=== PATIENT | female | born 1985 | race Caucasian/White ===

== ENCOUNTER 2022-07-31 15:09 | Day surgery (SDC) | payer MEDICAID, SELFPAY ==
[2022-07-31] VITALS (8 sets, daily range): BP systolic 104–116; BP diastolic 69–83; PULSE 16–90; RESP 16–18; TEMP 36.5–37.3; O2SAT 96–100; BMI 18.5; BMI 18.8
--- NOTE | 2022-07-31 15:09 | ED.VIS.FEGU ---
HPI HPI - Female History of Present Illness Chief Complaint: Informant: patient and other Narrative Narrative: 36-year-old female G2, P1 presenting to the emergency room following an ultrasound which revealed an ectopic . Her urgent care technician is Dr. Mckeon. Patient was sent to the emergency room to prepare for surgery. PFSH PFSH Home Medications docosahexaenoic acid 200 mg capsule ( DHA) mg PO 07/31/22 [History Last Taken Unknown] Allergy/AdvReac Type Severity Reaction Status Date / Time No Known Allergies Allergy Verified 07/31/22 15:08 Family History (Updated 07/31/22 @ 14:34 by Mary Kay Honeycutt) Grandfather Lung cancer Grandmother Cancer Social History (Updated 07/31/22 @ 14:35 by Mary Kay Honeycutt) Smoking Status: Never smoker alcohol intake: never substance use type: does not use caffeine: Yes what type of physical activity do you participate in: aerobics frequency: 1-2 times per week seatbelt use: always do you feel safe at home: Yes additional social history: - Serge EXAM Physical Exam Const Vital Signs: 07/31/22 15:07 Pulse Rate 90 Respiratory Rate 16 Blood Pressure 104/75 Blood Pressure Mean 84 Pulse Ox 100 Oxygen Delivery Method Room Air Discharge Plan Admission Attending Provider: Issa Posey Primary Care Provider: Erkia Mckeon Discharge Orders/Prescriptions Prescriptions: No Action DHA 200 mg capsule PO Referrals / Follow Up: Erika Mckeon MD [Primary Care Provider] - Disposition Disposition (needs filled in before D/C Order can be placed): Home, Self Care
[2022-07-31] MEDS: Lactated Ringers 1,000 ML 15 ML IV ×2 (15:45→17:00)
[2022-07-31 16:09] LABS: Absolute Lymphocyte Count 2.44 X10^3/uL (0.83-4.51); Absolute Neutrophil Count 5.5 X10^3/uL (2.0-7.7); Basophil# 0.04 X10^3/uL; Basophil% 0.4 % (0-1); Eosinophil# 0.19 X10^3/uL; Eosinophils% 2.1 % (0-5); Hematocrit 45.1 % (37-47); Hemoglobin 15.2 g/dL (12.0-15.0); Lymphocyte # 2.44 X10^3/ul (0.83-4.51); Lymphocyte % 27.3 % (19-41); Mean Corp Hgb Conc 33.7 g/dL (32-36); Mean Corpuscular Hgb 28.9 pg (27.0-32.0); Mean Corpuscular Volume 85.7 fL (81-99); Mean Platelet Vol. 10.1 fl (6.2-12.0); Monocyte# 0.76 X10^3/uL; Monocyte% 8.5 % (0-10); NRBC Flagged by Analyzer 0 % (0-5); Neutrophil # 5.47 X10^3/uL (2.7-7.7); Neutrophil % 61.1 % (47-70); Platelet Count 255 K/mm3 (150-450); RBC Distribution Width CV 12.1 % (11.6-14.6); RBC Distribution Width SD 37.7 fl (35.1-43.9); Red Blood Count 5.26 M/mm3 (4.2-5.4)
[2022-07-31 16:13] LABS: Prothrombin Time (Protime)PT. 12.7 SECONDS (11.7-14.9)
[2022-07-31 16:14] LABS: Partial Thromboplast Time 28.4 Seconds (24.1-36.2)
--- NOTE | 2022-07-31 16:17 | OP.PCM_ITS ---
Problems Associated Problem List Diagnoses (1) Ectopic : Report of Operation Date of Procedure: 07/31/22 Pre-Operative Diagnosis: see problem list Post-Operative Diagnosis: same Surgery/Procedure Performed:: laparoscopic right salpingectomy Description of Surgical Findings:: ruptured ectopic search coordinator: None (ragini parra) Type of Anesthesia: General and Local Specimen's removed: tube and ectopic Drains: none Estimated Blood Loss (mL): 50 Fluids Replaced: crystalloid Description of Procedure: Patient was taken in the operating room and was placed under general anesthesia was prepped and draped in normal sterile fashion in the dorsal lithotomy position. Bladder was drained of clear urine and SCDs were on preoperatively. Uterus was sounded and a uterine manipulator was placed after dilating. Attention was then paid to the abdominal portion of the procedure and the umbilicus was elevated with towel clamps and injected with Marcaine and after a 12 mm incision was made and the Veress needle was entered into the abdomen confirmed to be intra-abdominal with a low opening pressure of less than 5 mmHg. Abdomen was insufflated with CO2 gas and a 12 mm optical trocar was placed under direct visualization. A 5 mm port was placed in the right and left lower quadrant ports under direct visualization. Uterus was well visualized and there is noted to be a right ruptured ectopic coming from the right fallopian tube. Blood and clot were seen in the cul-de-sac. Fallopian tube was elevated and mesosalpinx transected and abnormal portion of the fallopian tube and were removed without complication and then placed in a bag and removed through the 12 mm port site. Liver and upper abdomen were visualized notably within normal limits and no other gross abnormalities were seen in the abdomen. All instruments removed from the abdomen after gas was desufflated. Antwan Vaughn was used to place a suture of 0 Vicryl through the 12 mm port site fascial incis ion. All port sites were closed with 3-0 Monocryl Steri's and op sites were applied. All instruments removed from the vagina and patient was awoken and taken recovery in stable condition. Grafts/Implants Used: none Complications none Admit VTE Documentation VTE Present on Admission: No VTE Mechan Device Prophylaxis: SCD's Procedures Urinary/Genital [id number]: [id number] Treat ectopic lapro w/ salpingectomy
--- NOTE | 2022-07-31 16:17 | HP.PCM_ITS ---
History and Physical Intake Vital Signs ? 07/31/2214:38 Height? 5 ft 4 in Weight:? 110 lb 8 oz BMI? 18.9 BP? 114/82 H Intake Visit Reasons:?PELVIC PAIN EARLY OB PER TK Allergies No Known Allergies Allergy (Verified 07/31/22 15:08) Medications docosahexaenoic acid 200 mg capsule ( DHA) mg PO 07/31/22 [History Confirmed 07/31/22] PFSH Family History?(Updated 07/31/22 @ 14:34 by Mary Kay Honeycutt) GrandfatherLung cancerGrandmother Cancer Social History?(Updated 07/31/22 @ 14:35 by Mary Kay Honeycutt) Smoking Status:? Never smoker alcohol intake:? never substance use type:? does not use caffeine:? Yes what type of physical activity do you participate in:? aerobics frequency:? 1-2 times per week seatbelt use:? always do you feel safe at home:? Yes additional social history:? - Serge HPI PELVIC PAIN EARLY OB PER TK Details: JONO CAMEJO is a 36 year old who presents for new onset pelvic pain and ectopic .? she has had pain increasing over the last day and denies any bleeding.? she was seen by a chiropractor yesterday and referred here. ultrasound shows AUA 6w0d CRL .3cm tube 1.8 x 1.7 x 1.8cm tube FHT seen 116 ys seen, all in the adnexa. History ? ? ? 2A ? Elective abortions ? Hx Para ? ? ? 1 ? Spontaneous abortions ? Hx # Term Pregnancies ? ? ?A ? Ectopic pregnancies ? Hx # Pregnancies ? Multiple births ? # of living children ? Past Pregnancies Del. Date? Name? GA/Weeks? Outcome? Route? Bth Weight? Infant Gen? Labor Lgth? Anesthesia? Del Locatn? Provider? FOB? 10/09/11 Max 41 live - full term 3kg 400g Male ? epidural ? [place] Serge Delivery Date: 10/09/11? Last Updated by: Mary Kay Honeycutt ? ? ? Patient states she was given Progesterone because baby was too low when she was 3 months . ROS Const Constitutional:?Denies fatigue, fever(s), headache(s), increased appetite, poor appetite, weight gain or weight loss Cardio Card:?Denies chest pain Resp Resp:?Denies cough or dyspnea GI GI:?Reports as per HPI; Denies constipation, nausea or vomiting :?Reports as per HPI; Denies difficulty voiding, dysuria, nipple discharge, urinary frequency, urinary incontinence, urinary hesitancy, urinary urgency, vaginal discharge, vaginal dryness, vaginal odor or vaginal pruritus Skin Skin/Breast:?Denies change in hair, breast mass, breast pain, breast skin changes or nipple discharge Exam Const General:?cooperative, healthy appearing, comfortable, no acute distress and well developed Nutritional Appearance:?average body habitus Orientation:?alert HENMT Head:?normal to inspection and normocephalic Neck Neck:?normal visual inspection and trachea midline Thyroid:?thyroid normal Resp Effort & Inspection:?normal respiratory effort GI Inspection:?normal to inspection and non-distended Palpation:?soft and no hepatosplenomegaly Skin General:?no rashes or lesions noted Coding Level of Care Code Off vis,new,level 4 Diagnoses Ectopic ? O00.90 Assessment and Plan Assessment and Plan (1) Ectopic : ?Status:?Acute ?Comment: plan emergent laparoscopic removal possible salpingostomy vs salpingectomy Plan After discussing the patient's diagnosis and treatment plan options, patient wishes to proceed with surgical management.? I have discussed with the patient the risks, benefits, and alternatives of the procedure which include but are not limited to risks of anesthesia, bleeding, infection, possible damage to bowel, bladder, or surrounding vasculature which could lead to additional surgery to evaluate any complications.? Patient agrees to procedure and wishes to proceed.? ACOG/uptodate references given for additional information regarding procedure.? Output By User Office Procedures Add?Procedure ? Departure Packet: Portal Print Orders Generate Education/Forms/Letters Visit Summary Decline ? Education ? Forms ? Letters Generated for this Document ? Prescriptions Prescriptions No prescriptions data is available. Incomplete Orders Incomplete Orders No Incomplete Orders Follow Up Scheduling?Grid Follow Up Patient Status Patient Status Departed Patient Status Comment Room 6 UPDATE- I have seen the patient and performed any clinically relevant updates to the history and physical exam. Erika Mckeon MD
--- NOTE | 2022-07-31 16:17 | DCINST_ITS ---
Discharge Instructions Diet Discharge Diet: No restrictions Activity Discharge Activity: Return to Normal Activity, May Drive (when pain free) and May Shower May resume sexual activity in: 1 week Weight Bearing Status: Full weight bearing Lifting Restrictions: 30 lbs for 2 weeks Dressing / Incision Call your doctor if your incision/area has: Continuous Slow Oozing, Sudden Increased Bleeding, Increased Pain/ Swelling, Increased Redness and Foul Smelling Discharge Call your doctor if you observe: Fever of 101 or Higher, Using more than 1 pad per hour, Shortness of breath, Chest pain and Uncontrolled pain Suture Line Care: Avoid Pulling/Pushing and Avoid Pinching/Bending Remove Dressing in: 1 week (if present) Cleanse incision/area with: Soap & Water and Keep Dressing Clean & Dry Follow Up Care Please Follow Up With: Erika Mckeon MD When: Call to make an appointment with your doctor for a postop visit in 2 weeks Test Results: Test results from this visit will be discussed in further detail at your follow- up appointment, if applicable. Discharge Plan Admission Attending Provider: Erika Mckeon Primary Care Provider: Erika Mckeon Discharge Orders/Prescriptions Prescriptions: New oxycodone-acetaminophen [Percocet] 5-325 mg tablet 1 tab PO Q6H PRN (Reason: pain) 7 Days Qty: 20 0RF naproxen [naproxen] 500 mg tablet 500 mg PO BID PRN PRN (Reason: Pain) Qty: 30 1RF Referrals / Follow Up: Erika Mckeon MD [Primary Care Provider] - Disposition Disposition (needs filled in before D/C Order can be placed): Home, Self Care
[2022-07-31 16:21] LABS: AST(SGOT) 11 U/L (15-37); Alanine Aminotransfer ALT/SGPT 18 U/L (13-56); Albumin, Serum 3.8 g/dL (3.2-5.0); Alkaline Phosphatase 84 U/L (45-117); Anion Gap 5 (5-15); BUN 16 mg/dL (7-18); BUN/Creat Ratio 23.1 RATIO (10-20); Calcium,Total 9.3 mg/dL (8.5-10.1); Chloride 103 mmol/L (98-107); Creatinine, Serum 0.69 mg/dL (0.55-1.02); EST Glomerular Filtration Rate 103 mL/min (>60); Est Glom Filt Rate - Afr Amer 124 mL/min (>60); Estimated Creatinine Clearance 90.49 ml/min; Glucose 96 mg/dL (74-106); Potassium 3.7 mmol/L (3.5-5.1); Protein, Total 7.8 g/dL (6.4-8.2); Sodium Level 137 mmol/L (136-145)
--- NOTE | 2022-07-31 17:00 | FAL_PTH ---
PATIENT: WINSTON CAMEJO LOC: ED U#:[id number] AGE/SX: 36/F ROOM: RE07/31/[address]: Dr. Erika Mckeon MD : 1985 BED: DIS: 07/31/2022 SPEC #: [id number] RECD: 08/03/22 11:10 STATUS: LARA BON #: [id number] FREDO: 07/31/22 17:[address]: Erika Mckeon DEPT: SURGICAL PATHOLOGY RECD BY: Catina Jackson Tissues: ECTOPIC PREG Procedures: Surgery Specimen Level IV HEADER OPERATION: Laparoscopic right salpingectomy, removal ectopic PRE-OP DIAGNOSIS: Ectopic TISSUE SUBMITTED: Right fallopian tube with ectopic MICROSCOPIC DIAGNOSIS Right fallopian tube with ectopic , salpingectomy: Fallopian tube and blood clots with immature chorionic villi and decidua (ectopic ). ELIZABETH:jay jay 08/04/2022 MICROSCOPIC DESCRIPTION Slides are reviewed. GROSS DESCRIPTION Received in fixative is one container labeled with the patient's name and designated right fallopian tube with ectopic . The specimen consists of a fallopian tube measuring 5.5 cm in length and 0.5 to 1.5 cm in diameter. The fimbrial end is identified. The proximal portion of the fallopian tube is distended. Sections reveal the distended portion is filled with blood clot. No obvious tissue is noted. Also present adherent to the fallopian tube are multiple blood clots measuring in aggregate 2 x 2.5 x 0.3 cm. The entire specimen is submitted in four cassettes. Cassette 4 contains the blood clots. / SJ:jay jay 08/03/2022 TC:5 CPT: 15681
== END 2022-07-31 18:51 | disposition home or self-care (01) ==
LOC: ED 15:11 → ACINP 15:11 → AC 15:23
PROVIDERS: Emergency Provider Emergency Medicine; PCP Obstetrics & Gynecology; Visit Provider Obstetrics & Gynecology
PROC: 10T24ZZ Resection of Products of Conception, Ectopic, Percutaneous Endoscopic Approach (ICD-10-PCS; CPT 59150; principal; 2022-07-31 16:45)
DX: O00.101 Right tubal pregnancy without intrauterine pregnancy (principal)
CPT/HCPCS: 59151; 00840; 76817; 80053; 85025; 85610; 85730; 88305; J7120; J2405

== ENCOUNTER → 2022-07-31 | Outpatient (CLI) | payer MEDICAID, SELFPAY ==
--- NOTE | 2022-07-31 13:48 | US_ITS ---
STUDY: FIRST TRIMESTER OBSTETRICAL ULTRASOUND REASON FOR EXAM: Female, 36 years old . Right lower quadrant pain. Viability. LMP: 06/12/2022. TECHNIQUE: Transvaginal TECHNICAL QUALITY: Adequate. PRIOR ULTRASOUND: None. FINDINGS: There is an extrauterine (ectopic) gestational sac. The mean sac diameter (MSD) measures 9.1 mm, indicating an estimated gestational age (EGA) of 5 weeks, 5 days. The gestational sac shape is within normal limits. There is a visualized yolk sac. The yolk sac measures 3 mm. The placenta is non-visualized. There is visualization of a live embryo. The crown-rump length (CRL) measures 3 mm, indicating an estimated gestational age (EGA) of 6 weeks, 1 days. There is demonstrated cardiac activity with a heart rate of 116 bpm. The estimated gestation age (EGA) by LMP is 7 weeks, 0 days. The estimated date of delivery (KELLE) by LMP is 03/19/2023. The estimated gestation age (EGA) by US is 6 weeks, 0 days. The estimated date of delivery (KELLE) by US is 03/26/2023. The uterus measures 7.6 cm x 6 x 4.5 cm. There is no demonstrated uterine fibroid. The cervix is closed. The right ovary measures 3.5 cm x 2.1 cm x 1.9 cm. There is evidence of a live ectopic in the right adnexa. There is no visualized right adnexal mass or complex lesion. The left ovary measures 2.3 cm x 1.7 cm x 1.9 cm. There is no left ovarian cyst. There is no visualized left adnexal mass or complex lesion. There is no fluid in the cul de sac. US/Transvaginal w/Preg US IMPRESSION: Findings indicative of a live ectopic corresponding to a gestational age of 6 weeks in the right adnexa. Electronically Signed: Jus Arriola MD at 14:56 EDT ,
== END | disposition home or self-care (01) ==
PROVIDERS: Referring Provider Registered Nurse; Visit Provider Registered Nurse
DX: O26.891 Other specified pregnancy related conditions, first trimester (principal); R10.2 Pelvic and perineal pain; Z3A.01 Less than 8 weeks gestation of pregnancy
CPT/HCPCS: 76817

== ENCOUNTER → 2022-10-16 | Outpatient (CLI) | payer MEDICAID, SELFPAY ==
--- NOTE | 2022-10-16 16:22 | US_ITS ---
INDICATION: Pelvic Pain EXAMINATION: Ultrasound US Pelvis Non OB Complete With Transvaginal Imaging TECHNIQUE: Transabdominal and transvaginal pelvic ultrasound was performed. Grayscale, spectral waveform, and color flow Doppler evaluation of the adnexa. COMPARISON: None. FINDINGS: UTERUS: Anteverted. The uterus measures 7.8 x 4.9 x 3.5 cm. There is no uterine mass. The endometrial stripe measures 8 mm in AP diameter which is within normal limits. RIGHT OVARY: 3.6 x 2.6 x 1.8 cm. Non-enlarged, normal echogenicity. There is normal arterial inflow and venous outflow present in the right ovary. LEFT OVARY: 2.6 x 2.5 x 1.7 cm. Non-enlarged, normal echogenicity. There is normal arterial inflow and venous outflow present in the left ovary. FREE FLUID: Trace US/Pelvic (Non ) IMPRESSION: No acute findings in the pelvis. Electronically Signed: Chris Blanco MD at 21:19 EST ,
== END | disposition home or self-care (01) ==
LOC: US 16:21
PROVIDERS: Referring Provider Obstetrics & Gynecology; Visit Provider Obstetrics & Gynecology
DX: R10.2 Pelvic and perineal pain (principal)
CPT/HCPCS: 76830; 76856; 93976

== ENCOUNTER → 2022-11-18 | Outpatient (CLI) | payer MEDICAID, SELFPAY ==
[2022-11-20 03:07] LABS: Chlamydia By Nucleic Acid AMP Negative (Negative)
[2022-11-20 13:05] LABS: Gonococcus By Nucleic Acid AMP Negative (Negative)
[2022-11-21 12:29] LABS: HPV APTIMA, High Risk Negative (Negative)
== END | disposition home or self-care (01) ==
LOC: LABSPEC 10:11
PROVIDERS: Referring Provider Nurse Practitioner Women's Health; Visit Provider Nurse Practitioner Women's Health
DX: Z12.4 Encounter for screening for malignant neoplasm of cervix (principal); Z11.3 Encounter for screening for infections with a predominantly sexual mode of transmission; N89.8 Other specified noninflammatory disorders of vagina
CPT/HCPCS: 87070; 87205; 87491; 87591; 87624; 88175; G0145

== ENCOUNTER → 2023-02-06 | Outpatient (CLI) | payer MEDICAID, SELFPAY ==
[2023-02-06 11:33] LABS: hCG Titer Quant., Serum 6082 mIU/mL (1-3)
== END | disposition home or self-care (01) ==
LOC: LAB 10:31
PROVIDERS: PCP Orthopaedic Surgery; Referring Provider Obstetrics & Gynecology; Visit Provider Obstetrics & Gynecology
DX: N91.2 Amenorrhea, unspecified (principal)
CPT/HCPCS: 36415; 84702

== ENCOUNTER → 2023-02-08 | Outpatient (CLI) | payer MEDICAID, SELFPAY ==
[2023-02-08 12:13] LABS: hCG Titer Quant., Serum 12182 mIU/mL (1-3)
== END | disposition home or self-care (01) ==
PROVIDERS: PCP Orthopaedic Surgery; Referring Provider Obstetrics & Gynecology; Visit Provider Obstetrics & Gynecology
DX: N91.2 Amenorrhea, unspecified (principal)
CPT/HCPCS: 36415; 84702

== ENCOUNTER → 2023-03-01 | Outpatient (CLI) | payer MEDICAID, SELFPAY ==
[2023-03-02 22:06] LABS: Chlamydia By Nucleic Acid AMP Negative (Negative); Gonococcus By Nucleic Acid AMP Negative (Negative)
== END | disposition home or self-care (01) ==
LOC: LABSPEC 11:11
PROVIDERS: PCP Orthopaedic Surgery; Referring Provider Obstetrics & Gynecology; Visit Provider Obstetrics & Gynecology
DX: O09.90 Supervision of high risk pregnancy, unspecified, unspecified trimester (principal)
CPT/HCPCS: 87086; 87491; 87591

== ENCOUNTER → 2023-03-15 | Outpatient (CLI) | payer MEDICAID, SELFPAY ==
[2023-03-15 16:11] LABS: Absolute Lymphocyte Count 2.41 X10^3/uL (0.83-4.51); Absolute Neutrophil Count 8.3 X10^3/uL (2.0-7.7); Basophil# 0.03 X10^3/uL; Basophil% 0.3 % (0-1); Eosinophil# 0.16 X10^3/uL; Eosinophils% 1.4 % (0-5); Hematocrit 38.1 % (37-47); Hemoglobin 12.9 g/dL (12.0-15.0); Lymphocyte # 2.41 X10^3/ul (0.83-4.51); Lymphocyte % 20.8 % (19-41); Mean Corp Hgb Conc 33.9 g/dL (32-36); Mean Corpuscular Hgb 28.6 pg (27.0-32.0); Mean Corpuscular Volume 84.5 fL (81-99); Mean Platelet Vol. 9.9 fl (6.2-12.0); Monocyte# 0.66 X10^3/uL; Monocyte% 5.7 % (0-10); NRBC Flagged by Analyzer 0 % (0-5); Neutrophil # 8.27 X10^3/uL (2.7-7.7); Neutrophil % 71.5 % (47-70); Platelet Count 276 K/mm3 (150-450); RBC Distribution Width SD 36.4 fl (35.1-43.9); Red Blood Count 4.51 M/mm3 (4.2-5.4); White Blood Count 11.6 K/mm3 (4.4-11.0)
[2023-03-15 16:55] LABS: NATERA MAILED SPECIMEN
[2023-03-15 17:09] LABS: HIV - WCH Non-Reactive (Nonreactive); Hepatitis B Surface Antigen Non-Reactive (Nonreactive); Hepatitis C Antibody Non-Reactive (Nonreactive); Rubella IgG Reactive (Nonreactive); Syphilis Antibodies Non-reactive
== END | disposition home or self-care (01) ==
LOC: PAVLAB 15:46
PROVIDERS: PCP Orthopaedic Surgery; Referring Provider Obstetrics & Gynecology; Visit Provider Obstetrics & Gynecology
DX: O09.511 Supervision of elderly primigravida, first trimester (principal); Z31.430 Encounter of female for testing for genetic disease carrier status for procreative management; Z3A.00 Weeks of gestation of pregnancy not specified
CPT/HCPCS: 36415; 85025; 86703; 86762; 86780; 86803; 86850; 86900; 86901; 87340

== ENCOUNTER → 2023-04-28 | Outpatient (CLI) | payer MEDICAID, SELFPAY | END | disposition home or self-care (01) | LOC: LABSPEC 12:06 | PROVIDERS: PCP Orthopaedic Surgery; Referring Provider Advanced Practice Midwife; Visit Provider Advanced Practice Midwife | DX: O09.90 Supervision of high risk pregnancy, unspecified, unspecified trimester (principal); Z3A.00 Weeks of gestation of pregnancy not specified | CPT/HCPCS: 87086 ==

== ENCOUNTER → 2023-07-16 | Outpatient (CLI) | payer MEDICAID, SELFPAY ==
[2023-07-16 09:49] LABS: Absolute Lymphocyte Count 1.19 X10^3/uL (0.83-4.51); Absolute Neutrophil Count 8.3 X10^3/uL (2.0-7.7); Basophil# 0.02 X10^3/uL; Basophil% 0.2 % (0-1); Hematocrit 35.2 % (37-47); Hemoglobin 11.8 g/dL (12.0-15.0); Lymphocyte # 1.19 X10^3/ul (0.83-4.51); Lymphocyte % 11.5 % (19-41); Mean Corp Hgb Conc 33.5 g/dL (32-36); Mean Corpuscular Hgb 29.4 pg (27.0-32.0); Mean Corpuscular Volume 87.8 fL (81-99); Mean Platelet Vol. 10.1 fl (6.2-12.0); Monocyte# 0.66 X10^3/uL; Monocyte% 6.4 % (0-10); NRBC Flagged by Analyzer 0 % (0-5); Neutrophil # 8.32 X10^3/uL (2.7-7.7); Platelet Count 190 K/mm3 (150-450); RBC Distribution Width SD 41.6 fl (35.1-43.9); Red Blood Count 4.01 M/mm3 (4.2-5.4); White Blood Count 10.4 K/mm3 (4.4-11.0)
[2023-07-16 10:00] LABS: Glucose Challenge Gest 1H 50g 137 mg/dL (70-140)
[2023-07-16 10:37] LABS: HIV - WCH Non-Reactive (Nonreactive); Syphilis Antibodies Non-reactive
== END | disposition home or self-care (01) ==
PROVIDERS: PCP Orthopaedic Surgery; Referring Provider Obstetrics & Gynecology; Visit Provider Obstetrics & Gynecology
DX: O09.90 Supervision of high risk pregnancy, unspecified, unspecified trimester (principal); Z3A.00 Weeks of gestation of pregnancy not specified
CPT/HCPCS: 36415; 82950; 85025; 86703; 86780

== ENCOUNTER → 2023-07-17 | Outpatient (CLI) | payer MEDICAID, SELFPAY | END | disposition home or self-care (01) | LOC: LAB 08:54 | PROVIDERS: PCP Orthopaedic Surgery; Referring Provider Registered Nurse; Visit Provider Registered Nurse | DX: Z00.00 Encounter for general adult medical examination without abnormal findings (principal) ==

== ENCOUNTER 2023-07-21 07:21 | Outpatient (CLI) | payer MEDICAID, SELFPAY ==
[2023-07-21 08:09] LABS: Glucose GTT-Gestation. Fasting 103 mg/dL (<105)
[2023-07-21 09:04] LABS: Glucose GTT-Gestational 1 Hr 248 mg/dL (<190)
[2023-07-21 09:58] LABS: Glucose GTT-Gestational 2 Hr 188 mg/dL (<165)
[2023-07-21 11:28] LABS: Glucose GTT-Gestational 3 Hr 134 L (<145)
== END 2023-07-21 23:59 | disposition home or self-care (01) ==
LOC: LAB 07:23
PROVIDERS: PCP Orthopaedic Surgery; Visit Provider Registered Nurse
DX: Z13.1 Encounter for screening for diabetes mellitus (principal)
CPT/HCPCS: 36415; 82951; 82952

== ENCOUNTER 2023-07-28 07:59 | Outpatient (RCR) | payer MEDICAID, SELFPAY | END 2023-07-31 23:59 | LOC: DC 07:59 | PROVIDERS: PCP Orthopaedic Surgery; Referring Provider Registered Nurse; Visit Provider Registered Nurse | DX: O24.419 Gestational diabetes mellitus in pregnancy, unspecified control (principal) | CPT/HCPCS: 97802 ==

== ENCOUNTER 2023-08-03 09:43 | Outpatient (RCR) | payer MEDICAID, SELFPAY | END 2023-08-31 23:59 | LOC: DC 09:43 | PROVIDERS: PCP Orthopaedic Surgery; Referring Provider Registered Nurse; Visit Provider Registered Nurse | DX: O24.419 Gestational diabetes mellitus in pregnancy, unspecified control (principal); Z3A.00 Weeks of gestation of pregnancy not specified | CPT/HCPCS: 97803 ==

== ENCOUNTER → 2023-09-06 | Outpatient (CLI) | payer MEDICAID, SELFPAY ==
--- NOTE | 2023-09-06 16:18 | US_ITS ---
EXAM: US SECOND OR THIRD TRIMESTER , TRANSABDOMINAL CLINICAL INDICATION: - low lying placenta TECHNIQUE: Transabdominal obstetrical ultrasound of the maternal pelvis and a second or third trimester with image documentation. COMPARISON: None this . FINDINGS: FETUS: Breech presentation. HEART RATE: 140 bpm. PRESENTATION: PLACENTA: Grade 1-2 anterior placenta. Not particularly low-lying. No placenta previa. No abruption. AMNIOTIC FLUID: Unremarkable. Largest fluid pocket 6.7 cm, 4 quadrant SUSIE 14.6 cm. ANATOMY: survey not performed. BIOMETRICS GESTATIONAL AGE: 36 weeks 6 days. This correlates well to reported clinical age of 35 weeks 6 days. KELLE: September 28, 2023. EFW: 2602 +/- 390 g, 31st percentile. BPD: 9.1 cm, 36 weeks 5 days. HC: 34.0 cm, 39 weeks 1 day. AC: 30.4 cm, 34 weeks 2 days. FL: 6.9 cm, 35 weeks 2 days. MATERNAL: UTERUS: Unremarkable. No myometrial mass. CERVIX: Unremarkable as visualized. The cervix is closed. 3.8 cm in length. ADNEXA: Not demonstrated. FREE FLUID: None. US/OB Limited With Biometrics IMPRESSION: Single live intrauterine . Breech presentation. Size consistent with clinical age. ratios are within normal limits with the exception of head circumference to abdominal circumference ratio upper limits of normal at 1.12, normal range 0.93-1.1. Electronically Signed: Vandana Cerda MD at 9:37 EST ,
== END | disposition home or self-care (01) ==
LOC: US 16:18
PROVIDERS: PCP Orthopaedic Surgery; Referring Provider Registered Nurse; Visit Provider Registered Nurse
DX: O44.40 Low lying placenta NOS or without hemorrhage, unspecified trimester (principal); Z3A.00 Weeks of gestation of pregnancy not specified
CPT/HCPCS: 76816

== ENCOUNTER 2023-09-13 06:17 | Outpatient (CLI) | payer MEDICAID, SELFPAY ==
[2023-09-13 06:35] VITALS: BMI 23.0
[2023-09-13 06:40] VITALS: BP 109/70; PULSE 80; TEMP 36.1; O2SAT 84; O2SAT 97
[2023-09-13] MEDS: Lactated Ringers 1,000 ML 125 ML IV (06:40)
[2023-09-13 07:25] LABS: Absolute Lymphocyte Count 1.69 X10^3/uL (0.83-4.51); Absolute Neutrophil Count 7.2 X10^3/uL (2.0-7.7); Basophil# 0.02 X10^3/uL; Basophil% 0.2 % (0-1); Eosinophil# 0.11 X10^3/uL; Eosinophils% 1.1 % (0-5); Hematocrit 39.7 % (37-47); Hemoglobin 12.8 g/dL (12.0-15.0); Lymphocyte # 1.69 X10^3/ul (0.83-4.51); Lymphocyte % 16.8 % (19-41); Mean Corp Hgb Conc 32.2 g/dL (32-36); Mean Corpuscular Hgb 27.8 pg (27.0-32.0); Mean Corpuscular Volume 86.3 fL (81-99); Mean Platelet Vol. 11.5 fl (6.2-12.0); Monocyte# 0.94 X10^3/uL; Monocyte% 9.3 % (0-10); NRBC Flagged by Analyzer 0 % (0-5); Neutrophil # 7.24 X10^3/uL (2.7-7.7); Neutrophil % 71.8 % (47-70); Platelet Count 193 K/mm3 (150-450); RBC Distribution Width CV 13.5 % (11.6-14.6); RBC Distribution Width SD 41.6 fl (35.1-43.9); White Blood Count 10.1 K/mm3 (4.4-11.0)
[2023-09-13 07:49] VITALS: BP 106/63; PULSE 69; TEMP 36.7
[2023-09-13 07:50] VITALS: PULSE 70; O2SAT 98
--- NOTE | 2023-09-13 07:52 | HP.PCM.OB_ITS ---
HPI - General HPI Narrative WINSTON CAMEJO, is a 37 F who presents for external cephalic version due to breech presentation Maternal Data Information KELLE Calculator Estimated Delivery Date Method Current WG Current Estimate 10/05/23 LMP (Certain) 36w 6d Other Estimates 10/06/23 Ultrasound #1 36w 5d PFSH PFS Medical History (Updated 09/13/23 @ 07:[address] Erika Mckeon MD) Anxiety Gestational diabetes History of abnormal cervical Pap smear Pendred syndrome Home Medications hydroxyzine pamoate 50 mg capsule (Vistaril) 50 mg PO QHS #30 caps 06/23/23 [Rx Last Taken Unknown] blood-glucose meter #1 ea 07/21/23 [Rx Last Taken Unknown] lancets #200 ea 07/21/23 [Rx Last Taken Unknown] blood sugar diagnostic (Blood Glucose Test strips) #120 ea 08/23/23 [Rx Last Taken Unknown] famotidine 20 mg tablet (Acid Controller) 20 mg PO DAILY 09/13/23 [History Last Taken 09/12/23 20:45] vit no.95-ferrous fumarate 28 mg-folic acid 800 mcg tablet () 1 tab PO DAILY 09/13/23 [History Last Taken 09/12/23 08:00 1 TAB] Allergy/AdvReac Type Severity Reaction Status Date / Time No Known Allergies Allergy Verified 09/13/23 06:43 Family History Grandfather Lung cancer Grandmother Cancer Surgical History H/O unilateral salpingectomy Social History Smoking Status: Never smoker alcohol intake: never substance use type: does not use caffeine: Yes what type of physical activity do you participate in: aerobics frequency: 1-2 times per week seatbelt use: always do you feel safe at home: Yes additional social history: - Serge History 2 Elective abortions Hx Para 1 Spontaneous abortions Hx # Term Pregnancies Ectopic pregnancies Hx # Pregnancies Multiple births # of living children Past Pregnancies Del. Date Name GA/Weeks Outcome Route Bth Weight Infant Gen Labor Lgth Anesthesia Del Locatn Provider FOB Unknown 07/2022 ectopic, RSO/SM 12/09/11 Max 41 live - full term 3kg 400g Male epi dural [place] Serge Delivery Date: 10/09/11 Last Updated by: Mary Kay Albrightion Patient states she was given Progesterone because baby was too low when she was 3 months . Visit Details Expected Delivery Route/Plan Labor Preferences- CB/BF classes:enc labor support person: Serge labor intervention preferences: low interventions as possible pain management options preferred: open to epidural cut cord/dad catch: [] : plans PP control planned: [] discussed possible routes of delivery and associated risks: [] special requests: [] Plans Covid status: discussed Flu vaccine: discussed Tdap vaccine: discussed Rhogam: na LARC form signed: completed Problem list reviewed and updated with the most current plan of care details and appropriate orders placed. Relevant counseling for the gestational age provided. Continue routine care and follow up unless otherwise noted in visit notes/problem list details OB Flowsheet Initial Weight: 116 lb Date -?-?-?-?-?-?-?-?-?-?-?-?- EGA Weight BP Urine Prot -?-?-?-?-?-?-?-?-?-?-?-?- Glucose FHR FuHt Pres Dilation -?-?-?-?-?-?-?-?-?-?-?-?- Effaced St Visit Note 03/01/23 -?-?-?-?-?-?-?-?-?-?-?-?- 8w 6d 116 lb 2 oz (+2 oz) 131/82 -?-?-?-?-?-?-?-?-?-?-?-?- 160 -?-?-?-?-?-?-?-?-?-?-?-?- SM- CRL cons wit h lmp 03/31/23 -?-?-?-?-?-?-?-?-?-?-?-?- 13w 1d 116 lb 2 oz (+2 oz) 122/72 Negative -?-?-?-?-?-?-?-?-?-?-?-?- Negative 165 -?-?-?-?-?-?-?-?-?-?-?-?- KW- no vb/crampi ng. no concerns. labs reviewed-having a BOY! US ordered 04/28/23 -?-?-?-?-?-?-?-?-?-?-?-?- 17w 1d 120 lb 6 oz (+4 lb 6 oz) 104/66 Negative -?-?-?-?-?-?-?-?-?-?-?-?- Negative 150 -?-?-?-?-?-?-?-?-?-?-?-?- KW-+fm, no vb/cr amping. having pelvic pressure and frequency-culture. Us on 05/1305/24/23 -?-?-?-?-?-?-?-?-?-?-?-?- 20w 6d 124 lb 6 oz (+8 lb 6 oz) 101/57 Negative -?-?-?-?-?-?-?-?-?-?-?-?- Negative 150 -?-?-?-?-?-?-?-?-?-?-?-?- LC- no vb/ctx. f eeling fm. normal anatomy. low lying placenta. repeat in 28 weeks. 06/23/23 -?-?-?-?-?-?-?-?-?-?-?-?- 25w 1d 128 lb (+12 lb) 108/72 Negative -?-?-?-?-?-?-?-?-?-?-?-?- Negative 138 25 -?-?-?-?-?-?-?-?-?-?-?-?- JV- having insom tahmina and problems with anxiety at bedtime. will try vistaril. gct ordered. 07/16/23 -?-?-?-?-?-?-?-?-?-?-?-?- 28w 3d 131 lb (+15 lb) 109/73 Negative -?-?-?-?-?-?-?-?-?-?-?-?- Negative 140 28 -?-?-?-?-?-?-?-?-?-?-?-?- LC- no vb/ctx/lo f. good fm. glucose 137.will obtain 3 hour glucose. LC- no vb/ctx/lof. good fm. glucose 137.will obtain 3 hour glucose.has f/u us on wednesday for previa. 07/30/23 -?-?-?-?-?-?-?-?-?-?-?-?- 30w 3d 131 lb 6 oz (+15 lb 6 oz) 101/73 Negative -?-?-?-?-?-?-?-?-?-?-?-?- Negative 135 30 -?-?-?-?-?-?-?-?-?-?-?-?- KW-no vb/lof/ctx . good fm. BS good at appt. LARC done. 08/13/23 -?-?-?-?-?-?-?-?-?-?-?-?- 32w 3d 131 lb 4 oz (+15 lb 4 oz) 106/69 Negative -?-?-?-?-?-?-?-?-?-?-?-?- Negative 148 32 -?-?-?-?-?-?-?-?-?-?-?-?- kw-no vb/lof/ctx . good fm. using pepcid for heart burn 08/23/23 -?-?-?-?-?-?-?-?-?-?-?-?- 33w 6d 134 lb 2 oz (+18 lb 2 oz) 98/62 Negative -?-?-?-?-?-?-?-?-?-?-?-?- Negative 145 34 -?-?-?-?-?-?-?-?-?-?-?-?- LC- no lof/vb/ct x. good fm. growth scan ordered for 36 weeks. glucose in great control. 09/06/23 -?-?-?-?-?-?-?-?-?-?-?-?- 35w 6d 135 lb (+19 lb) 100/78 Negative -?-?-?-?-?-?-?-?-?-?-?-?- Negative 150 36 Breech -?-?-?-?-?-?-?-?-?-?-?-?- LC- no lof/vb/ct x/ good fm. glucose in great control pp x1 elevated. fetus breech on leopolds today and bedside us. obtaining offical us today. is interested in ECV if candidate based on fluid volume. 09/13/23 -?-?-?-?-?-?-?-?-?-?-?-?- 36w 6d 134 lb 4.184 oz (+18 lb 4.184 oz) 109/70 106/63 -?-?-?-?-?-?-?-?-?-?-?-?- Cephalic -?-?-?-?-?-?-?-?-?-?-?-?- ECV done and suc cessful NST FHR Rate Baby A Baseline: 140-150 Variability:: Moderate Accelerations:: 15 x 15 Decelerations:: None NST Reactive:: Yes FHR Category:: Category I Uterine Activity:: irregular ROS Constitutional Constitutional: Reports systems reviewed and no addt'l complaints, except as documented Eyes Eyes: Denies change in vision ENT HEENT: Reports systems reviewed and no addt'l complaints, except as documented; Denies headache(s) Cardiovascular Cardiovascular: Reports systems reviewed and no addt'l complaints, except as documented; Denies chest pain or dyspnea Respiratory/Chest Respiratory/Chest: Reports systems reviewed and no addt'l complaints, except as documented Gastrointestinal Gastrointestinal: Reports systems reviewed and no addt'l complaints, except as documented; Denies abdominal pain Genitourinary Genitourinary: Reports systems reviewed and no addt'l complaints, except as documented, contractions Details: present (irregular) and movement Details: present; Denies dysuria or genital lesions Musculoskeletal Musculoskeletal: Reports systems reviewed and no addt'l complaints, except as documented Neurologic Neurologic: Reports systems reviewed and no addt'l complaints, except as documented Endocrine Endocrinology: Reports systems reviewed and no addt'l complaints, except as documented Vital Signs Vital Signs Vital Signs: 09/13/23 06:40 09/13/23 06:40 09/13/23 06:40 Temperature Temperature Source Pulse Rate 80 Blood Pressure 109/70 BP Systolic 109 BP Diastolic 70 Pulse Ox 84 09/13/23 06:40 09/13/23 06:40 09/13/23 06:40 Temperature 97.0 F L Temperature Source Temporal Pulse Rate Blood Pressure BP Systolic BP Diastolic Pulse Ox 97 09/13/23 07:49 09/13/23 07:49 09/13/23 07:49 Temperature Temperature Source Temporal Pulse Rate 69 Blood Pressure 106/63 BP Systolic 106 BP Diastolic 63 Pulse Ox 09/13/23 07:50 09/13/23 07:50 09/13/23 07:49 Temperature 98.0 F Temperature Source Pulse Rate 70 Blood Pressure BP Systolic BP Diastolic Pulse Ox 98 Weight Weight: 134 lb 4.184 oz Body Mass Index (BMI) 23.0 Physical Exam Const alert, oriented x3, no apparent distress and healthy appearing HEENT normocephalic and moist oral mucous membranes Head and Scalp: atraumatic Neck full ROM, no lymphadenopathy, supple and thyroid normal General: trachea midline Lymph Lymphatic: no lymphadenopathy noted Chest inspection of chest normal Resp normal respiratory effort Cardio regular rate GI normal to inspection, nondistended, normoactive bowel sounds, soft to palpation and non-tender Inspection: gravid Extremity normal to inspection General Extremity: Negative for edema Skin no rashes or lesions noted Neuro no focal motor deficits and deep tendon reflexes 2+ bilaterally Motor Exam: strength 5/5 throughout and clonus absent Psych mental status grossly normal Labs Labs Labs: Blood Type O POSITIVE Antibody Screen NEGATIVE Hct 39.7 % (37-47) Hgb 12.8 g/dL (12.0-15.0) Obstetrics Ultrasound Syphilis Total Ab Non-reactive Rubella IgG Antibody Reactive (Nonreactive) Hep Bs Antigen Non-Reactive (Nonreactive) Hepatitis C Antibody Non-Reactive (Nonreactive) Chlamydia DNA (JULITO) Negative (Negative) N.gonorrhoeae DNA (JULITO) Negative (Negative) HIV 1&2 Antibody Non-Reactive (Nonreactive) Glucose 1 Hr 50 gm 137 mg/dL (70-140) Gest Glucose Tolerance MG/DL Assessment & Plan (1) Gestational diabetes: QUALIFIERS: Gestational diabetes mellitus control: diet-controlled COMMENT: diet controlled test BS fasting & 2 hr PP, nutrition consult Had growth at 28 weeks for placenta- EFW 68% growth at 36 weeks deliver by 40 weeks (2) Supervision of high-risk : COMMENT: PRR KELLE 10/05/23 boy [facility] Serge (3) AMA (advanced maternal age) multigravida 35+: COMMENT: genetic counseling provided (4) 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 10/12 (5) : QUALIFIERS: Weeks of gestation: 35 weeks Qualified Code(s): Z3A.35 - 35 weeks gestation of COMMENT: GBS neg, nipt low risk, carrier screen done. anatomy reveiwed PLAN: Plan breech presentation- converted to cephalic and then monitored after
--- NOTE | 2023-09-13 07:56 | PCM.OP.BLANK ---
Operative Report Preprocedure diagnosis: Breech presentation Post procedure diagnosis: Vertex presentation Procedure: External cephalic version Surgeon: Erika Mckeon EBL: None Complications: None Anesthesia: None Special medications: none Seizure details: The fetus was found to be in breech presentation informed by ultrasound. Patient had an IV in place, normal amniotic fluid, no contraindications to a vaginal delivery, and reactive nonstress test prior to the procedure. Patient was placed in the dorsal supine position after the terbutaline was given. Ultrasound gel was applied to the patient's abdomen and using constant upward pressure to elevate the buttocks out of the pelvic inlet constant pressure was applied to the buttocks and to the area behind the back of the neck and head to encourage first a backward and then a forward roll of the fetus. Constant pressure was applied and slowly the was converted to a vertex presentation. Bedside ultrasound was used to confirm vertex presentation and reassuring heart rate. Patient was replaced on the NST and monitored to assure reassuring status. No complications. Procedures Urinary/Genital [id number]: [id number] V
== END 2023-09-13 09:00 | disposition home or self-care (01) ==
LOC: WPOUT 06:27 → WP 06:27
PROVIDERS: PCP Orthopaedic Surgery; Referring Provider Obstetrics & Gynecology; Visit Provider Obstetrics & Gynecology
DX: O32.1XX0 Maternal care for breech presentation, not applicable or unspecified (principal); O24.410 Gestational diabetes mellitus in pregnancy, diet controlled; O09.523 Supervision of elderly multigravida, third trimester; Z3A.35 35 weeks gestation of pregnancy
CPT/HCPCS: 59412; 96360; 96361; 36415; 59025; 59050; 85025; 86850; 86900; 86901; 99221; J7120; G0378

== ENCOUNTER → 2023-09-17 | Outpatient (CLI) | payer MEDICAID, SELFPAY | END | disposition home or self-care (01) | LOC: LABSPEC 17:04 | PROVIDERS: PCP Orthopaedic Surgery; Referring Provider Registered Nurse; Visit Provider Registered Nurse | DX: Z34.90 Encounter for supervision of normal pregnancy, unspecified, unspecified trimester (principal); Z3A.00 Weeks of gestation of pregnancy not specified | CPT/HCPCS: 87081 ==

== ENCOUNTER 2023-10-08 07:10 | Inpatient (IN) | payer MEDICAID, SELFPAY ==
[2023-10-08] VITALS (41 sets, daily range): BP systolic 105–133; BP diastolic 63–85; PULSE 68–89; TEMP 36.6–37.1; O2SAT 92–100; BMI 23.5
[2023-10-08 09:53] LABS: Absolute Lymphocyte Count 1.53 X10^3/uL (0.83-4.51); Absolute Neutrophil Count 7.8 X10^3/uL (2.0-7.7); Basophil# 0.02 X10^3/uL; Basophil% 0.2 % (0-1); Eosinophil# 0.09 X10^3/uL; Eosinophils% 0.9 % (0-5); Hematocrit 37.2 % (37-47); Hemoglobin 12.5 g/dL (12.0-15.0); Lymphocyte # 1.53 X10^3/ul (0.83-4.51); Lymphocyte % 14.7 % (19-41); Mean Corp Hgb Conc 33.6 g/dL (32-36); Mean Corpuscular Hgb 28.7 pg (27.0-32.0); Mean Corpuscular Volume 85.3 fL (81-99); Mean Platelet Vol. 11.6 fl (6.2-12.0); Monocyte# 0.86 X10^3/uL; Monocyte% 8.3 % (0-10); NRBC Flagged by Analyzer 0 % (0-5); Neutrophil # 7.83 X10^3/uL (2.7-7.7); Neutrophil % 75.3 % (47-70); Platelet Count 200 K/mm3 (150-450); RBC Distribution Width CV 14.2 % (11.6-14.6); RBC Distribution Width SD 44.5 fl (35.1-43.9); Red Blood Count 4.36 M/mm3 (4.2-5.4); White Blood Count 10.4 K/mm3 (4.4-11.0)
[2023-10-08 10:31] LABS: Syphilis Antibodies Non-reactive
--- NOTE | 2023-10-08 10:32 | HP.PCM.OB_ITS ---
HPI - General General Date of Admission: 10/08/23 HPI Narrative WINSTON CAMEJO, is a 38 F who presents for IOL secondary to GDM and AMA, no vb lof admits goo dfm irregular ctx Maternal Data Information KELLE Calculator Estimated Delivery Date Method Current WG Current Estimate 10/05/23 LMP (Certain) 40w 3d Other Estimates 10/06/23 Ultrasound #1 40w 2d PFSH PFSH Medical History Anxiety Gestational diabetes History of abnormal cervical Pap smear Pendred syndrome Home Medications hydroxyzine pamoate 50 mg capsule (Vistaril) 50 mg PO QHS #30 caps 06/23/23 [Rx Last Taken Unknown] blood-glucose meter #1 ea 07/21/23 [Rx Last Taken Unknown] lancets #200 ea 07/21/23 [Rx Last Taken Unknown] famotidine 20 mg tablet (Acid Controller) 20 mg PO DAILY 09/13/23 [History Last Taken 09/12/23 20:45] vit no.95-ferrous fumarate 28 mg-folic acid 800 mcg tablet () 1 tab PO DAILY 09/13/23 [History Last Taken 09/12/23 08:00 1 TAB] blood sugar diagnostic (Blood Glucose Test strips) #120 ea 09/27/23 [Rx Last Taken Unknown] Allergy/AdvReac Type Severity Reaction Status Date / Time No Known Allergies Allergy Verified 10/04/23 11:37 Family History Grandfather Lung cancer Grandmother Cancer Surgical History H/O unilateral salpingectomy Social History Smoking Status: Never smoker alcohol intake: never substance use type: does not use caffeine: Yes what type of physical activity do you participate in: aerobics frequency: 1-2 times per week seatbelt use: always do you feel safe at home: Yes additional social history: - Serge History 2 Elective abortions Hx Para 1 Spontaneous abortions Hx # Term Pregnancies Ectopic pregnancies Hx # Pregnancies Multiple births # of living children Past Pregnancies Del. Date Name GA/Weeks Outcome Route Bth Weight Gen Labor Lgth Anesthesia Del Locatn Provider FOB Unknown 07/2022 ectopic, RSO/SM 10/09/11 Max 41 live - full term 3kg 400g Male epi dural [place] Serge Delivery Date: 10/09/11 Last Updated by: Mary Kay Honeycutt Patient states she was given Progesterone because baby was too low when she was 3 months . Visit Details Expected Delivery Route/Plan Labor Preferences- CB/BF classes:enc labor support person: Serge labor intervention preferences: low interventions as possible pain management options preferred: open to epidural cut cord/dad catch: [] : plans PP control planned: [] discussed possible routes of delivery and associated risks: [] special requests: [] Plans Covid status: discussed Flu vaccine: discussed Tdap vaccine: discussed Rhogam: na LARC form signed: completed Problem list reviewed and updated with the most current plan of care details and appropriate orders placed. Relevant counseling for the gestational age provided. Continue routine care and follow up unless otherwise noted in visit notes/problem list details OB Flowsheet Initial Weight: 116 lb Date -?-?-?-?-?-?-?-?-?-?-?-?- EGA Weight BP Urine Prot -?-?-?-?-?-?-?-?-?-?-?-?- Glucose FHR FuHt Pres Dilation -?-?-?-?-?-?-?-?-?-?-?-?- Effaced St Visit Note 03/01/23 -?-?-?-?-?-?-?-?-?-?-?-?- 8w 6d 116 lb 2 oz (+2 oz) 131/82 -?-?-?-?-?-?-?-?-?-?-?-?- 160 -?-?-?-?-?-?-?-?-?-?-?-?- SM- CRL cons wit h lmp 03/31/23 -?-?-?-?-?-?-?-?-?-?-?-?- 13w 1d 116 lb 2 oz (+2 oz) 122/72 Negative -?-?-?-?-?-?-?-?-?-?-?-?- Negative 165 -?-?-?-?-?-?-?-?-?-?-?-?- KW- no vb/crampi ng. no concerns. labs reviewed-having a BOY! US ordered 04/28/23 -?-?-?-?-?-?-?-?-?-?-?-?- 17w 1d 120 lb 6 oz (+4 lb 6 oz) 104/66 Negative -?-?-?-?-?-?-?-?-?-?-?-?- Negative 150 -?-?-?-?-?-?-?-?-?-?-?-?- KW-+fm, no vb/cr amping. having pelvic pressure and frequency-culture. Us on 05/1305/24/23 -?-?-?-?-?-?-?-?-?-?-?-?- 20w 6d 124 lb 6 oz (+8 lb 6 oz) 101/57 Negative -?-?-?-?-?-?-?-?-?-?-?-?- Negative 150 -?-?-?-?-?-?-?-?-?-?-?-?- LC- no vb/ctx. f eeling fm. normal anatomy. low lying placenta. repeat in 28 weeks. 06/23/23 -?-?-?-?-?-?-?-?-?-?-?-?- 25w 1d 128 lb (+12 lb) 108/72 Negative -?-?-?-?-?-?-?-?-?-?-?-?- Negative 138 25 -?-?-?-?-?-?-?-?-?-?-?-?- JV- having insom tahmina and problems with anxiety at bedtime. will try vistaril. gct ordered. 07/16/23 -?-?-?-?-?-?-?-?-?-?-?-?- 28w 3d 131 lb (+15 lb) 109/73 Negative -?-?-?-?-?-?-?-?-?-?-?-?- Negative 140 28 -?-?-?-?-?-?-?-?-?-?-?-?- LC- no vb/ctx/lo f. good fm. glucose 137.will obtain 3 hour glucose. LC- no vb/ctx/lof. good fm. glucose 137.will obtain 3 hour glucose.has f/u us on wednesday for previa. 07/30/23 -?-?-?-?-?-?-?-?-?-?-?--?- 30w 3d 131 lb 6 oz (+15 lb 6 oz) 101/73 Negative -?-?-?-?-?-?-?-?-?-?-?-?- Negative 135 30 -?-?-?-?-?-?-?-?-?-?-?-?- KW-no vb/lof/ctx . good fm. BS good at appt. LARC done. 08/13/23 -?-?-?-?-?-?-?-?-?-?-?-?- 32w 3d 131 lb 4 oz (+15 lb 4 oz) 106/69 Negative -?-?-?-?-?-?-?-?-?-?-?-?- Negative 148 32 -?-?-?-?-?-?-?-?-?-?-?-?- kw-no vb/lof/ctx . good fm. using pepcid for heart burn 08/23/23 -?-?-?-?-?-?-?-?-?-?-?-?- 33w 6d 134 lb 2 oz (+18 lb 2 oz) 98/62 Negative -?-?-?-?-?-?-?-?-?-?-?-?- Negative 145 34 -?-?-?-?-?-?-?--?-?-?-?-?- LC- no lof/vb/ct x. good fm. growth scan ordered for 36 weeks. glucose in great control. 09/06/23 -?-?-?-?-?-?-?-?-?-?-?-?- 35w 6d 135 lb (+19 lb) 100/78 Negative -?-?-?-?-?-?-?-?-?-?-?-?- Negative 150 36 Breech -?-?-?-?-?-?-?-?-?-?-?-?- LC- no lof/vb/ct x/ good fm. glucose in great control pp x1 elevated. fetus breech on leopolds today and bedside us. obtaining offical us today. is interested in ECV if candidate based on fluid volume. 09/13/23 -?-?-?-?-?-?-?--?-?-?-?-?- 36w 6d 134 lb 4.184 oz (+18 lb 4.184 oz) 109/70 106/63 -?-?-?-?-?-?-?-?-?-?-?-?- Cephalic -?-?-?-?-?-?-?-?-?-?-?-?- ECV done and suc cessful 09/17/23 -?-?-?-?-?-?-?-?-?-?-?-?- 37w 3d 135 lb 8 oz (+19 lb 8 oz) 109/72 -?-?-?-?-?-?-?-?-?-?-?-?- 150 37 Cephalic -?-?-?-?-?-?-?-?-?-?-?-?- LC- no vb/lof/ct x. good fm. fasting under 95. elevated ppx2 over weekend otherwise all under 120. declines VE today. discussed 40 week IOL for GDM, gbs collected today 09/22/23 -?-?-?-?-?-?-?-?-?-?-?-?- 38w 1d 137 lb (+21 lb) 109/70 Negative -?-?-?-?-?-?-?-?--?-?-?-?- Negative 140 38 Cephalic -?-?-?-?-?-?-?-?-?-?-?-?- LC- no vb/lof.ct x. good fm. overall good control. 3 fasting glucose elevated. will have IOL for 40 weeks. growth was at 31% 09/27/23 -?-?-?-?-?-?-?-?-?-?-?-?- 38w 6d 137 lb (+21 lb) 130/78 118/78 Negative -?-?-?-?-?-?-?-?-?-?-?-?- Negative 143 37 Cephalic 0 -?-?-?-?-?-?-?-?-?-?-?-?- 80 -2 JV- good g lucose control so far. wants to wait a couple of days past the 40 week avinash for IOL. susie today is 12 10/04/23 -?-?-?-?-?-?-?-?-?-?-?-?- 39w 6d 136 lb 8 oz (+20 lb 8 oz) 114/75 Negative -?-?-?-?-?-?-?-?-?-?-?-?- Negative 144 37 Cephalic 4 -?-?-?-?-?-?-?-?-?-?-?-?- 80 -2 JV- SUSIE to day is 11, labor precautions discussed. no complaints other than loss of mucous. IOL if no labor. NST FHR Rate Baby A Baseline: 140 Variability:: Moderate Accelerations:: 15 x 15 Decelerations:: None NST Reactive:: Yes FHR Category:: Category I Uterine Activity:: irregular ROS Constitutional Constitutional: Reports systems reviewed and no addt'l complaints, except as documented Eyes Eyes: Denies change in vision ENT HEENT: Reports systems reviewed and no addt'l complaints, except as documented; Denies headache(s) Cardiovascular Cardiovascular: Reports systems reviewed and no addt'l complaints, except as documented; Denies chest pain or dyspnea Respiratory/Chest Respiratory/Chest: Reports systems reviewed and no addt'l complaints, except as documented Gastrointestinal Gastrointestinal: Reports systems reviewed and no addt'l complaints, except as documented; Denies abdominal pain Genitourinary Genitourinary: Reports systems reviewed and no addt'l complaints, except as documented, contractions Details: present (irregular) and movement Details: present; Denies dysuria or genital lesions Musculoskeletal Musculoskeletal: Reports systems reviewed and no addt'l complaints, except as documented Neurologic Neurologic: Reports systems reviewed and no addt'l complaints, except as documented Endocrine Endocrinology: Reports systems reviewed and no addt'l complaints, except as documented Vital Signs Vital Signs Vital Signs: 10/08/23 07:43 10/08/23 07:43 10/08/23 09:03 Pulse Rate 85 Blood Pressure 122/82 H 105/67 BP Systolic 122 105 BP Diastolic 82 67 10/08/23 09:03 Pulse Rate 85 Blood Pressure BP Systolic BP Diastolic Physical Exam Const alert, oriented x3, no apparent distress and healthy appearing HEENT normocephalic and moist oral mucous membranes Head and Scalp: atraumatic Neck full ROM, no lymphadenopathy, supple and thyroid normal General: trachea midline Lymph Lymphatic: no lymphadenopathy noted Chest inspection of chest normal Resp normal respiratory effort Cardio regular rate GI normal to inspection, nondistended, normoactive bowel sounds, soft to palpation and non-tender Inspection: gravid external exam normal Manual OB Exam: estimated gestational size appropriate, presentation cephalic, dilated 4-5, effaced 50 and station -2 Extremity normal to inspection General Extremity: Negative for edema Skin no rashes or lesions noted Neuro no focal motor deficits and deep tendon reflexes 2+ bilaterally Motor Exam: strength 5/5 throughout and clonus absent Psych mental status grossly normal Labs Labs Labs: Blood Type O POSITIVE Antibody Screen NEGATIVE Hct 37.2 % (37-47) Hgb 12.5 g/dL (12.0-15.0) Obstetrics Ultrasound Syphilis Total Ab Non-reactive Rubella IgG Antibody Reactive (Nonreactive) Hep Bs Antigen Non-Reactive (Nonreactive) Hepatitis C Antibody Non-Reactive (Nonreactive) Chlamydia DNA (JULITO) Negative (Negative) N.gonorrhoeae DNA (JULITO) Negative (Negative) HIV 1&2 Antibody Non-Reactive (Nonreactive) Glucose 1 Hr 50 gm 137 mg/dL (70-140) Gest Glucose Tolerance MG/DL Assessment & Plan (1) : QUALIFIERS: Weeks of gestation: 39 weeks Qualified Code(s): Z3A.39 - 39 weeks gestation of COMMENT: nipt low risk, carrier screen done. 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 Pain management: considering epidural. GBS negative. Management of any complications: BS per protocol I have reviewed the PFSH and made any clinically relevant updates.
[2023-10-08] MEDS: 0.9% Saline Lock 10 ML Syringe IV (15:07)
[2023-10-08] MEDS: Lactated Ringers 1,000 ML 50 ML IV (15:08)
[2023-10-08] MEDS: Oxytocin 15 Units/NS 250ml 15 UNITS/250 ML IV.SOLN 2 UNITS IV (15:08)
[2023-10-08 15:45] LABS: Bedside Glucose 125 mg/dL (74-106)
[2023-10-08 17:47] LABS: Bedside Glucose 97 mg/dL (74-106)
[2023-10-08 20:21] LABS: Bedside Glucose 85 mg/dL (74-106)
[2023-10-08] MEDS: LACTATED RINGERS 500 ML 999 ML IV (20:37)
[2023-10-08] MEDS: Lidocaine 1% (20 ml mdv) 20 ML Vial INFILT (21:50)
--- NOTE | 2023-10-08 22:00 | OP.PCM_ITS ---
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 anatomy reveiwed (6) Vaginal delivery: COMMENT: SM IOL AMA GDM Maternal Data Information KELLE Calculator Estimated Delivery Date Method Current WG Current Estimate 10/05/23 LMP (Certain) 40w 3d Other Estimates 10/06/23 Ultrasound #1 40w 2d Vaginal Delivery Operative Information Date of Procedure: 10/08/23 Pre-Operative Diagnosis: see a/p diagnoses Post-Operative Diagnosis: same Surgery / Procedure Performed: Spontaneous Vaginal Delivery Type of Anesthesia: Local with 1% Lidocaine Special Medications: none Estimated Blood Loss: 200 Fluids Replaced: crystalloid Findings Description of Procedure: Patient began pushing and delivered the head in the DAVE presentation. The head was delivered atraumatically . The anterior and posterior shoulders delivered without complication followed by the rest of the infant and the infant was placed on the maternal abdomen. Delayed cord clamping was employed for approximately 60 seconds. Cord was clamped and cut and gentle traction was applied to the cord and the placenta delivered spontaneously immediately following it was noted to be intact with three-vessel cord. The perineum and vagina were inspected and noted to have a second degree perineal laceration which was repaired in the usual fashion with 3-0 vicryl rapide after injecting with lidocaine. . EBL was 200 cc. Patient and infant tolerated delivery well. Amniotic Fluid Description: Clear Placental Delivery Description: Spontaneous Placenta Disposition: [facility] Cord Vessel Description: 3 Vessels Cord Entanglement: None Delayed Cord Clamping: Yes Post Vaginal Delivery Medications Given After Delivery: - (Pitocin) Episiotomy Description: None Complication Complications: None Procedures Urinary/Genital 52xxx-[id number]: [id number] Vaginal Delivery+PP Care([facility])
--- NOTE | 2023-10-08 22:01 | DCINST_ITS ---
Discharge Instructions Diet Discharge Diet: No restrictions Activity Discharge Activity: Return to Normal Activity, May Not Drive (while taking narcotic pain medications.) and May Shower May resume sexual activity in: 4-6 weeks Dressing / Incision Call your doctor if your incision/area has: Continuous Slow Oozing, Sudden Increased Bleeding, Increased Pain/ Swelling, Increased Redness and Foul Smelling Discharge Follow Up Care Please Follow Up With: Erika Mckeon MD When: Call [phone] to make an appointment with your doctor in 6 weeks. If you had elevated blood pressure or 4th degree laceration, you will need to be seen in 2 weeks. Test Results: Test results from this visit will be discussed in further detail at your follow- up appointment, if applicable. Discharge Plan Admission Admit Date/Time: 10/08/23 07:10 Attending Provider: Erika Mckeon Primary Care Provider: Kevin Carpio Discharge Orders/Prescriptions Prescriptions: No Action hydroxyzine pamoate [Vistaril] 50 mg capsule 50 mg PO QHS Qty: 30 6RF (DME) Blood Glucose Test Strip See Rx Instructions .Route Qty: 120 5RF Rx Instructions: As directed- fasting and 2 hrs post meals PNV cmb#95-ferrous fumarate-FA [] 28 mg iron- 800 mcg tablet 1 tab PO DAILY famotidine [Acid Controller] 20 mg tablet 20 mg PO DAILY (DME) blood-glucose meter Misc See Rx Instructions .MEDSUPPLY Qty: 1 0RF Rx Instructions: As directed- Test fasting and 2 hours after meals (DME) lancets Misc See Rx Instructions .MEDSUPPLY Qty: 200 5RF Rx Instructions: As directed-fasting and 2 hr post meals Referrals / Follow Up: Kevin Carpio MD [Primary Care Provider] - Disposition Disposition (needs filled in before D/C Order can be placed): Home, Self Care
[2023-10-08] MEDS: Ketorolac 30 MG/ML Syringe IM (22:04)
[2023-10-08] MEDS: Oxytocin 15 Units/NS 250ml 15 UNITS/250 ML IV.SOLN 83 UNITS IV (22:25)
[2023-10-08 23:10] LABS: Bedside Glucose 132 mg/dL (74-106)
[2023-10-08] MEDS: Acetaminophen 500 MG Tablet 1000 MG PO (23:56)
[2023-10-09] VITALS (9 sets, daily range): BP systolic 95–118; BP diastolic 55–66; PULSE 67–93; RESP 15–16; TEMP 36.6–37.1; O2SAT 96–97
[2023-10-09] MEDS: SimETHICONE 80 MG Chewable Tablet PO (05:44)
[2023-10-09 06:05] LABS: Bedside Glucose 103 mg/dL (74-106)
--- NOTE | 2023-10-09 09:11 | PN.OBGYN_ITS ---
Subjective Subjective Patient doing well without complaints. Tolerating PO. Ambulating and voiding without difficulty. Feeding well. Denies chest pain, shortness of breath, calf pain/swelling, fevers, chills, lightheadedness. Objective Data Objective Data Vital Signs: Vital Signs Temp Pulse Resp BP Pulse Ox O2 Del Method 97.8 F 80 16 100/57 L 96 Room Air 10/09/23 05:37 10/09/23 09:01 10/09/23 05:37 10/09/23 09:01 10/08/23 23:48 10/09/23 05:37 Oxygen Delivery Method Room Air Weight: 137 lb Body Mass Index (BMI) 23.5 Intake & Output: Intake and Output for Last 24 Hours 10/07/23 10/08/23 10/09/23 23:59 23:59 23:59 Intake Total 1080.83 / 1080.83 250 / 250 Output Total 200 / 200 450 / 450 Balance 880.83 / 880.83 -200 / -200 Lab / Micro Data 10/08/23 09:20 Labs: Laboratory Results - last 24 hr 10/08/23 09:20: WBC 10.4, RBC 4.36, Hgb 12.5, Hct 37.2, MCV 85.3, MCH 28.7, MCHC 33.6, RDW Std Deviation 44.5 H, RDW Coeff of Marcus 14.2, Plt Count 200, MPV 11.6, Immature Gran % (Auto) 0.600, Neut % (Auto) 75.3 H, Lymph % (Auto) 14.7 L, Brooke % (Auto) 8.3, Eos % (Auto) 0.9, Baso % (Auto) 0.2, Absolute Neuts (auto) 7.8 H, Absolute Lymphs (auto) 1.53, Nucleated RBC % 0, Syphilis Total Ab Non-reactive, Blood Type O POSITIVE, Antibody Screen NEGATIVE 10/08/23 15:24: POC Glucose 125 H 10/08/23 17:22: POC Glucose 97 10/08/23 20:00: POC Glucose 85 10/08/23 22:48: POC Glucose 132 H 10/09/23 05:47: POC Glucose 103 ROS Constitutional Constitutional: Denies chills, fatigue, fever(s), poor appetite or weakness Eyes Eyes: Denies blurry vision, change in vision, seeing flashes or spots in vision ENT HEENT: Denies dizziness, headache(s), loss taste/smell or sore throat Cardiovascular Cardiovascular: Denies chest pain, dizziness, dyspnea, irregular heart rhythm, palpitations or rapid heart rate Respiratory/Chest Respiratory/Chest: Denies chest tightness, cough, dyspnea or breast pain Gastrointestinal Gastrointestinal: Denies abdominal pain, constipation or vomiting Genitourinary Genitourinary: Denies dysuria or flank pain Musculoskeletal Musculoskeletal: Denies difficulty walking, joint pain, limited range of motion or numbness Neurologic Neurologic: Denies abnormal movements, abnormal speech, dizziness, numbness, seizure-like activity or syncope Psychiatric Psychiatric: Denies anxiety, behavioral changes, change in appetite, confusion, depression or suicidal thoughts Physical Exam Const alert, oriented x3 and no apparent distress General Appearance: cooperative and comfortable Resp normal respiratory effort Cardio regular rate GI normal to inspection, nondistended, normoactive bowel sounds GI Narrative: uterus is firm below umbilicus Palpation: soft Back/Spine no CVA tenderness and thoraco-lumbar ROM normal Extremity normal to inspection, no clubbing, cyanosis or edema, no calf tenderness and no pedal edema Psych mental status grossly normal, thought process normal, cooperative, affect normal, speech normal, activity/motor behavior normal, denies homicidal ideation and denies suicidal ideation Assessment & Plan (1) Vaginal delivery: COMMENT: SM IOL AMA GDM PLAN: s/p PPD # 1 1. routine post delivery care 2. breast feeding- support given 3. rh positive 4. rubella immune 5. plan for dc to home tomorrow am.
[2023-10-09] MEDS: Naproxen 500 MG Tablet PO (12:06)
[2023-10-09] MEDS: Famotidine 20 MG Tablet PO ×2 (12:20→22:20)
[2023-10-09] MEDS: Senna/Docusate Sodium 1 Tablet PO (12:20)
--- NOTE | 2023-10-09 17:00 | CASEMGMT ---
Social Work Assessment Labor and Delivery Unit Patient Address: [address] [place] [address] Phone number: [phone] Date of Referral: 10/09/2023 Time of Referral:? 12:20 Referred By: Jeimy Rosa Date of Intervention: ?10/09/2023 Time of Intervention:? 17:00 Reason for Referral:? Anxiety History obtained from: medical records and mother of baby (MOB) and FOB Household composition: MOB, FOB ? [place] and FOB?s parents Patient's parent/guardian status: MOB and FOB are and have a 12 year old son together. Parents have been in the [place] for 1 year and 9 months and are from the [facility]. Medical History: MOB received adequate care. One prior child and denies medical concerns for self and child. Baby boy Torey 8/9 apgars and 7lbs 11 oz. MOB plans to breastfeed and did with prev child. Educational Status: No literacy concerns Financial Status: No financial concerns Infant Supplies: Parents report having all necessary supplies and equipment Childcare/Caregiver(s):? MOB plans to care for child and paternal grandparents present in the home. Transportation:? No concerns Programs/Agencies Involved: ??[facility] Children Services/Legal Issues:??? None Behavioral Health Issues: ?? Health History: Mother denies any major mental health concerns/history. Mother has history of anxiety. Substance Use History:?? Denies personal history. Family History: Denies family history.??? Drug Screens: ?None Family/Social Stressors:? Cultural and language barriers Support Systems: Grandparents are involved and supportive Depression: Education provided and parents receptive Shaken Baby: Education provided and parents receptive Safe Sleeping: Education provided and parents receptive ASSESSMENT: MOB and FOB appropriate. Parents are from the [facility] and speak/understand Bulgarian fairly well. Parents asked appropriate questions. Parents report adjusting to culture and language in the [place]. No immediate concerns or needs at this time.? PLAN:? No other services requested or indicated. Johanna Roberto CHIEF STATION ENGINEER, TUBING TESTER
[2023-10-10 02:45] VITALS: BP 105/57; PULSE 78; RESP 16; TEMP 36.6; O2SAT 95; O2SAT 96
[2023-10-10 02:46] VITALS: BP 105/57; PULSE 77
[2023-10-10 08:53] VITALS: BP 106/58; PULSE 71
[2023-10-10 09:11] VITALS: BP 106/58; PULSE 71; RESP 18; TEMP 36.9; O2SAT 96
--- NOTE | 2023-10-10 10:00 | PN.OBGYN_ITS ---
Subjective Subjective Patient doing well without complaints. Tolerating PO. Ambulating and voiding without difficulty. Feeding well. Denies chest pain, shortness of breath, calf pain/swelling, fevers, chills, lightheadedness. Objective Data Objective Data Vital Signs: Vital Signs Temp Pulse Resp BP Pulse Ox O2 Del Method 98.5 F 71 18 106/58 L 96 Room Air 10/10/23 09:11 10/10/23 09:11 10/10/23 09:11 10/10/23 09:11 10/10/23 09:11 10/10/23 09:11 Oxygen Delivery Method Room Air Weight: 137 lb Body Mass Index (BMI) 23.5 Intake & Output: Intake and Output for Last 24 Hours 10/08/23 10/09/23 10/10/23 23:59 23:59 23:59 Intake Total 1080.83 / 1080.83 250 / 250 Output Total 200 / 200 450 / 450 Balance 880.83 / 880.83 -200 / -200 Lab / Micro Data 10/08/23 09:20 ROS Constitutional Constitutional: Denies chills, fatigue, fever(s), poor appetite or weakness Eyes Eyes: Denies blurry vision, change in vision, seeing flashes or spots in vision ENT HEENT: Denies dizziness, headache(s), loss taste/smell or sore throat Cardiovascular Cardiovascular: Denies chest pain, dizziness, dyspnea, irregular heart rhythm, palpitations or rapid heart rate Respiratory/Chest Respiratory/Chest: Denies chest tightness, cough, dyspnea or breast pain Gastrointestinal Gastrointestinal: Denies abdominal pain, constipation or vomiting Genitourinary Genitourinary: Denies dysuria or flank pain Musculoskeletal Musculoskeletal: Denies difficulty walking, joint pain, limited range of motion or numbness Neurologic Neurologic: Denies abnormal movements, abnormal speech, dizziness, numbness, sei zure-like activity or syncope Psychiatric Psychiatric: Denies anxiety, behavioral changes, change in appetite, confusion, depression or suicidal thoughts Physical Exam Const alert, oriented x3 and no apparent distress General Appearance: cooperative and comfortable Resp normal respiratory effort Cardio regular rate GI normal to inspection, nondistended, normoactive bowel sounds GI Narrative: uterus is firm below umbilicus Palpation: soft Back/Spine no CVA tenderness and thoraco-lumbar ROM normal Extremity normal to inspection, no clubbing, cyanosis or edema, no calf tenderness and no pedal edema Psych mental status grossly normal, thought process normal, cooperative, affect normal, speech normal, activity/motor behavior normal, denies homicidal ideation and denies suicidal ideation Assessment & Plan (1) Vaginal delivery: COMMENT: SM IOL AMA GDM (2) Gestational diabetes: QUALIFIERS: Gestational diabetes mellitus control: diet-controlled COMMENT: IOL set up for 10/07/23 @ 7am diet controlled test BS fasting & 2 hr PP, nutrition consult Had growth at 28 weeks for placenta- EFW 68% growth at 36 weeks deliver by 40 weeks PLAN: Plan s/p PPD # 2 1. routine post delivery care 2. breast feeding- support given 3. rh positive 4. rubella immune 5. ok to dc to home today
[2023-10-10] MEDS: Famotidine 20 MG Tablet PO (10:59)
== END 2023-10-10 13:10 | disposition home or self-care (01) | DRG 560 ==
PROVIDERS: Admitting Provider Obstetrics & Gynecology; PCP Orthopaedic Surgery; Referring Provider Obstetrics & Gynecology; Visit Provider Obstetrics & Gynecology
DX: O24.420 Gestational diabetes mellitus in childbirth, diet controlled (principal); Z37.0 Single live birth; O70.1 Second degree perineal laceration during delivery; Z3A.39 39 weeks gestation of pregnancy
CPT/HCPCS: 59025; 59050; 82962; 85025; 86780; 86850; 86900; 86901; 99221; J7120; A4216; G0378

== ENCOUNTER → 2024-06-22 | Outpatient (CLI) | payer MEDICAID, SELFPAY ==
--- NOTE | 2024-06-22 16:20 | US_ITS ---
EXAM: US PELVIS TRANSABDOMINAL AND TRANSVAGINAL, COMPLETE CLINICAL INDICATION: pelvic pain TECHNIQUE: Transabdominal and transvaginal pelvic ultrasound was performed with grayscale and color Doppler imaging. Transvaginal imaging was used for better evaluation of the endometrium and adnexa. COMPARISON: 09/06/2023 FINDINGS: UTERUS/CERVIX: Nabothian cysts and several calcifications are identified. Anteverted. The uterus measures 6.5 x 4.8 x 3.5 cm. The endometrial stripe measures 0.6 cm in thickness. RIGHT OVARY: A nonshadowing echogenic region within the right ovary is present measuring 8 mm in maximal diameter, nonspecific. Blood flow is present in the right ovary. The right ovary measures 3.8 x 2.1 x 1.7 cm. LEFT OVARY: No significant abnormality. Blood flow is present in the left ovary. The left ovary measures 3.2 x 2.0 x 1.8 cm. FREE FLUID: None. BLADDER: Normal as visualized. Wall is normal thickness for degree of distention. US/Pelvic w/ Transvaginal IMPRESSION: 1. No significant uterine abnormality. Cervical calcifications are nonspecific. 2. Echogenic focus within the right ovary. This is nonspecific and may be a small dermoid. ACR White Paper guidelines (Nelson, et. al. Radiology 2010; 256(3):943-954) suggest surgical evaluation or yearly pelvic ultrasound follow-up to document stability. Electronically Signed: Ralph Mccann DO at 23:57 EDT ,
== END | disposition home or self-care (01) ==
LOC: US 16:19
PROVIDERS: PCP Registered Nurse; Referring Provider Obstetrics & Gynecology; Visit Provider Obstetrics & Gynecology
DX: R10.2 Pelvic and perineal pain (principal); N91.2 Amenorrhea, unspecified
CPT/HCPCS: 76830; 76856

== ENCOUNTER → 2024-09-21 | Outpatient (CLI) | payer MEDICAID, SELFPAY | END | disposition home or self-care (01) | LOC: LABSPEC 16:56 | PROVIDERS: PCP Registered Nurse; Referring Provider Obstetrics & Gynecology; Visit Provider Obstetrics & Gynecology | DX: R30.0 Dysuria (principal) | CPT/HCPCS: 87077; 87086; 87088; 87186 ==